=== PATIENT | male | born 1980 | race Caucasian/White ===

== ENCOUNTER 2017-06-14 08:40 | Emergency (ER) | payer BC, OTHER ==
[2017-06-14] MEDS ORDERED: ONDANSETRON HCL INJ/PF 4 MG/2 ML SDV IV ONE (09:01)
[2017-06-14] MEDS ORDERED: PANTOPRAZOLE SODIUM 40 MG VIAL IV ONE (09:01)
[2017-06-14 09:29] LABS: ABSOLUTE BASOPHILS # (AUTO) 0.1 10^3/uL (0.0-0.2); ABSOLUTE EOSINOPHILS # (AUTO) 0.1 10^3/uL (0.0-0.6); ABSOLUTE LYMPHOCYTES (AUTO) 1.8 10^3/uL (0.5-4.7); ABSOLUTE MONOCYTES (AUTO) 0.8 10^3/uL (0.1-1.4); ABSOLUTE NEUT (AUTO) 10.6 10^3/uL (1.7-8.2); BASOPHILS % (AUTO) 0.5 % (0-2); EOSINOPHILS % (AUTO) 0.4 % (0-6); HEMATOCRIT 50.7 % (37.9-51.0); LYMPHOCYTES % (AUTO) 13.3 % (13-45); MEAN CORPUSCULAR HEMOGLOBIN 31.4 pg (27.0-33.4); MEAN CORPUSCULAR HGB CONC 35.6 g/dL (32.0-36.0); MEAN CORPUSCULAR VOLUME 88 fl (80-97); MONOCYTES % (AUTO) 6.2 % (3-13); PLATELET COUNT 385 10^3/uL (150-450); RED BLOOD COUNT 5.75 10^6/uL (4.35-5.55); RED CELL DISTRIBUTION WIDTH 12.6 % (11.5-14.0); SEGMENTED NEUTROPHILS % (AUTO) 79.6 % (42-78); TOTAL CELLS COUNTED % (AUTO) 100 %; WHITE BLOOD COUNT 13.3 10^3/uL (4.0-10.5)
[2017-06-14 09:49] LABS: ALANINE AMINOTRANSFERASE 67 U/L (21-72); ALBUMIN 5.1 g/dL (3.5-5.0); ALKALINE PHOSPHATASE 91 U/L (38-126); ANION GAP 15 (5-19); ASPARTATE AMINO TRANSFERASE 44 U/L (17-59); BILIRUBIN,DIRECT 0.4 mg/dL (0.0-0.4); BILIRUBIN,TOTAL 1.2 mg/dL (0.2-1.3); BLOOD UREA NITROGEN 10 mg/dL (7-20); CALCIUM 10.4 mg/dL (8.4-10.2); CARBON DIOXIDE 27 mmol/L (22-30); CHLORIDE 99 mmol/L (98-107); GLUCOSE 118 mg/dL (75-110); LIPASE 160.9 U/L (23-300); POTASSIUM 3.8 mmol/L (3.6-5.0); SODIUM 140.5 mmol/L (137-145); TOTAL PROTEIN 7.8 g/dL (6.3-8.2)
[2017-06-14 09:52] LABS: ALCOHOL < 10 mg/dL (NONE DETECTED)
[2017-06-14] MEDS ORDERED: NORMAL SALINE 1000 ML 1,000 ML IV ONE (10:10)
--- NOTE | 2017-06-14 10:47 | ER Document Report ---
ED General - General Chief Complaint: Abdominal Pain Stated Complaint: VOMITING BLOOD, BLOOD IN STOOL Time Seen by Provider: 06/14/17 09:00 TRAVEL OUTSIDE OF THE [place] IN LAST 30 DAYS: No - HPI Patient complains to provider of: Nausea vomiting Notes: Patient presents for nausea vomiting ongoing for approximately 10 days. Patient states he had 2 days of bloody stools that stopped 5 days ago now is vomiting a slight amount of blood. Patient states he does drink alcohol approximately 3-4 drinks daily. Patient denies ever having a colonoscopy or EGD performed. Patient states small streaks whenever he does vomit. Patient denies any fevers chills diarrhea. Patient resting comfortably upon my evaluation. Patient also does admit smoking and slight marijuana use. No recent travel or antibiotics. - Related Data Allergies/Adverse Reactions: No Known Allergies Allergy (Unverified 06/14/17 08:43) Past Medical History - Social History Smoking Status: Current Every Day Smoker Chew tobacco use (# tins/day): No Frequency of alcohol use: None Drug Abuse: None Family History: Reviewed & Not Pertinent Patient has suicidal ideation: No Patient has homicidal ideation: No Renal/ Medical History: Denies: Hx Peritoneal Dialysis Review of Systems - Review of Systems Constitutional: No symptoms reported EENT: No symptoms reported Cardiovascular: No symptoms reported Respiratory: No symptoms reported Gastrointestinal: Nausea, Vomiting Genitourinary: No symptoms reported Male Genitourinary: No symptoms reported Musculoskeletal: No symptoms reported Skin: No symptoms reported Hematologic/Lymphatic: No symptoms reported Neurological/Psychological: No symptoms reported -: Yes All other systems reviewed and negative Physical Exam - Vital signs Vitals: Temp Pulse Resp BP Pulse Ox 97.9 F 97 16 165/109 H 98 06/14/17 08:49 06/14/17 08:49 06/14/17 08:49 06/14/17 08:49 06/14/17 08:49 Interpretation: Normal - General General appearance: Appears well, Alert - HEENT Head: Normocephalic, Atraumatic Eyes: Normal Pupils: PERRL - Respiratory Respiratory status: No respiratory distress Chest status: Nontender Breath sounds: Normal Chest palpation: Normal - Cardiovascular Rhythm: Regular Heart sounds: Normal auscultation Murmur: No - Abdominal Inspection: Normal Distension: No distension Bowel sounds: Normal Tenderness: Nontender Organomegaly: No organomegaly - Back Back: Normal, Nontender - Extremities General upper extremity: Normal inspection, Nontender, Normal color, Normal ROM , Normal temperature General lower extremity: Normal inspection, Nontender, Normal color, Normal ROM , Normal temperature, Normal weight bearing. No: Yahir's sign - Neurological Neuro grossly intact: Yes Cognition: Normal Orientation: AAOx4 Bruno Coma Scale Eye Opening: Spontaneous Bruno Coma Scale Verbal: Oriented Bruno Coma Scale Motor: Obeys Commands Bashir Coma Scale Total: 15 Speech: Normal Motor strength normal: LUE, RUE, LLE, RLE Sensory: Normal - Psychological Associated symptoms: Normal affect, Normal mood - Skin Skin Temperature: Warm Skin Moisture: Dry Skin Color: Normal Course - Re-evaluation Re-evalutation: 06/14/17 15:07 Laboratory studies showed hemoconcentration. Patient had no vomiting here is able tolerate p.o. More likely underlying gastritis. Patient was encouraged to stop drinking alcohol patient agrees with plan with nausea medication and omeprazole. Patient scheduled for his care discharged home. The patient presents with nausea vomiting without signs of peritonitis or other life- threatening or serious etiology. The patient appears stable for discharge and has been instructed to return immediately if the symptoms worsen in any way, or in 8-12hr if not improved for re-evaluation. The patient has been instructed to return if the symptoms worsen or change in any way. - Vital Signs Vital signs: Temp Pulse Resp BP Pulse Ox 97.9 F 92 18 169/113 H 98 06/14/17 08:49 06/14/17 11:34 06/14/17 11:34 06/14/17 11:34 06/14/17 11:34 - Laboratory Result Diagrams: 06/14/17 09:03 06/14/17 09:03 Laboratory results interpreted by me: 06/14/17 06/14/17 09:03 09:03 WBC 13.3 H RBC 5.75 H Hgb 18.0 H Seg Neutrophils % 79.6 H Absolute Neutrophils 10.6 H Glucose 118 H Calcium 10.4 H Albumin 5.1 H Discharge - Discharge Clinical Impression: Nausea & vomiting Condition: Good Disposition: HOME, SELF-CARE Instructions: Gastritis ([facility]), Gastroenteritis (adult) ([facility]), Gastroenterology Additional Instructions: Your laboratory results today show signs of dehydration. More likely have a GI virus that is causing nausea vomiting and some inflammation of the stomach gastritis causing the small amount of blood to be vomited. Please abstain from any alcohol use for the next few days. Take medications as prescribed. Return to ER symptoms worsen. Would recommend following up with her primary care physician and/or goggles assembler Prescriptions: Omeprazole 20 mg PO DAILY #30 capsule. Ondansetron [Zofran Odt] 4 mg PO Q6 PRN #30 tab.rapdis PRN Reason: For Nausea/Vomiting Promethazine HCl [Phenergan 25 mg Tablet] 25 mg PO Q6 #30 tablet Referrals: EMELINA CERVANTES DO [Primary Care Provider] - Follow up as needed
[2017-06-14 11:36] VITALS: BP 169/113
== END 2017-06-14 11:35 | disposition home or self-care (01) ==
LOC: ER 08:40
DX: R11.2 Nausea with vomiting, unspecified (principal); R10.9 Unspecified abdominal pain; K92.1 Melena; F17.200 Nicotine dependence, unspecified, uncomplicated
CPT/HCPCS: 99284; 96361; 96374; 96375; 36415; 80307; 83690; 83735; 85025; 80053; S0164; J2405; J7030

== ENCOUNTER 2017-08-15 11:55 | Emergency (ER) | payer BC ==
[2017-08-15] MEDS ORDERED: ONDANSETRON HCL INJ/PF 4 MG/2 ML SDV IV ONE (12:09)
[2017-08-15] MEDS ORDERED: HYDROCHLOROTHIAZIDE 12.5 MG CAPSULE PO ONE (12:10)
[2017-08-15] MEDS ORDERED: LISINOPRIL 10 MG TABLET PO ONE (12:10)
[2017-08-15] MEDS ORDERED: RINGERS SOLUTION,LACTATED 1,000 ML IV ONE (12:10)
--- NOTE | 2017-08-15 12:13 | ER Document Report ---
ED Medical Screen (RME) - General Chief Complaint: High Blood Pressure Stated Complaint: BLOOD PRESSURE CONCERNS Time Seen by Provider: 08/15/17 12:09 Notes: RAPID MEDICAL EVALUATION DISCLOSURE I have seen this patient as part of a Rapid Medical Evaluation and, if applicable, placed any initially appropriate orders. The patient will be seen and fully evaluated, including a full history and physical exam, by a provider ( in Main ED or Fast Track) when a room becomes available. 36-year-old male PMH EtOH abuse (6 pack beer daily for many years) here with complaints of nausea vomiting and "my stomach is on fire" for the past 2 days. He states he has been unable to keep down any foods liquids or medications. He had the same constellation of symptoms recently and was seen in the emergency department. He was prescribed Zofran ODT which he has been swallowing and "I am puking it right back up". He is not allowing it to dissolve under his tongue. He has not been able to keep down his lisinopril/hydrochlorothiazide combination blood pressure medication. His usual blood pressure is in the 120s systolic. He denies any chest pain shortness of breath headache. He denies any prior history of pancreatitis. EXAM Clear to auscultation bilaterally Regular rate and rhythm No abdominal TTP on my exam No peritoneal signs TRAVEL OUTSIDE OF THE U.S. IN LAST 30 DAYS: No - Related Data Allergies/Adverse Reactions: No Known Allergies Allergy (Verified 08/15/17 12:04) Past Medical History - Social History Chew tobacco use (# tins/day): No Frequency of alcohol use: Heavy Drug Abuse: None - Past Medical History Cardiac Medical History: Reports: Hx Hypertension Renal/ Medical History: Denies: Hx Peritoneal Dialysis Physical Exam - Vital signs Vitals: Temp Pulse Resp BP Pulse Ox 97.6 F 80 20 171/127 H 100 08/15/17 12:01 08/15/17 12:01 08/15/17 12:01 08/15/17 12:01 08/15/17 12:01 Course - Vital Signs Vital signs: Temp Pulse Resp BP Pulse Ox 97.6 F 80 20 171/127 H 100 08/15/17 12:01 08/15/17 12:01 08/15/17 12:01 08/15/17 12:01 08/15/17 12:01
[2017-08-15 13:16] LABS: ABSOLUTE BASOPHILS # (AUTO) 0.1 10^3/uL (0.0-0.2); ABSOLUTE LYMPHOCYTES (AUTO) 1.4 10^3/uL (0.5-4.7); ABSOLUTE MONOCYTES (AUTO) 0.6 10^3/uL (0.1-1.4); ABSOLUTE NEUT (AUTO) 8.5 10^3/uL (1.7-8.2); BASOPHILS % (AUTO) 0.5 % (0-2); EOSINOPHILS % (AUTO) 0.3 % (0-6); HEMOGLOBIN 18.2 g/dL (13.5-17.0); LYMPHOCYTES % (AUTO) 13.1 % (13-45); MEAN CORPUSCULAR HEMOGLOBIN 30.6 pg (27.0-33.4); MEAN CORPUSCULAR VOLUME 88 fl (80-97); MONOCYTES % (AUTO) 5.5 % (3-13); PLATELET COUNT 367 10^3/uL (150-450); RED BLOOD COUNT 5.94 10^6/uL (4.35-5.55); RED CELL DISTRIBUTION WIDTH 12.8 % (11.5-14.0); SEGMENTED NEUTROPHILS % (AUTO) 80.6 % (42-78); TOTAL CELLS COUNTED % (AUTO) 100 %; WHITE BLOOD COUNT 10.5 10^3/uL (4.0-10.5)
[2017-08-15 13:28] LABS: ALANINE AMINOTRANSFERASE 56 U/L (21-72); ALBUMIN 5.3 g/dL (3.5-5.0); ALKALINE PHOSPHATASE 98 U/L (38-126); ANION GAP 16 (5-19); ASPARTATE AMINO TRANSFERASE 39 U/L (17-59); BILIRUBIN,DIRECT 0.3 mg/dL (0.0-0.4); BILIRUBIN,TOTAL 0.9 mg/dL (0.2-1.3); BLOOD UREA NITROGEN 13 mg/dL (7-20); CALCIUM 10.5 mg/dL (8.4-10.2); CARBON DIOXIDE 28 mmol/L (22-30); CHLORIDE 98 mmol/L (98-107); GLUCOSE 140 mg/dL (75-110); LIPASE 214.1 U/L (23-300); SODIUM 141.5 mmol/L (137-145)
[2017-08-15] MEDS ORDERED: LIDOCAINE 2% VISCOUS SOLN 20 ML UDCUP PO ONE (13:35)
[2017-08-15] MEDS ORDERED: MAG HYDROX/AL HYDROX/SIMETH SUSP 30 ML UDCUP PO ONE (13:37)
--- NOTE | 2017-08-15 14:34 | ER Document Report ---
ED General - General Chief Complaint: High Blood Pressure Stated Complaint: BLOOD PRESSURE CONCERNS Time Seen by Provider: 08/15/17 12:09 Notes: Patient is a 36-year-old male presents emergency room with a chief complaint of epigastric discomfort and inability to tolerate p.o. Patient states his been going on since yesterday. He admits to GERD with nausea and vomiting. Patient states that he has had this similarly in the past and came here and was treated and discharged home. Patient follows with [facility] [employer] [facility] Patient states that he takes lisinopril with HCTZ for blood pressure. He admits that he was previously drinking a sixpack a day of beer but is recently started to cut down. TRAVEL OUTSIDE OF THE [place] IN LAST 30 DAYS: No - Related Data Allergies/Adverse Reactions: No Known Allergies Allergy (Verified 08/15/17 12:04) Past Medical History - Social History Smoking Status: Current Every Day Smoker Chew tobacco use (# tins/day): No Frequency of alcohol use: Heavy Drug Abuse: None Family History: Reviewed & Not Pertinent Patient has suicidal ideation: No Patient has homicidal ideation: No - Past Medical History Cardiac Medical History: Reports: Hx Hypertension Renal/ Medical History: Denies: Hx Peritoneal Dialysis Review of Systems - Review of Systems Constitutional: No symptoms reported Cardiovascular: No symptoms reported Respiratory: No symptoms reported Gastrointestinal: See HPI Genitourinary: No symptoms reported Musculoskeletal: No symptoms reported -: Yes All other systems reviewed and negative Physical Exam - Vital signs Vitals: Temp Pulse Resp BP Pulse Ox 97.6 F 80 20 171/127 H 100 08/15/17 12:01 08/15/17 12:01 08/15/17 12:01 08/15/17 12:01 08/15/17 12:01 - Notes Notes: PHYSICAL EXAM GENERAL: Alert, interacts well. HEAD: Normocephalic, atraumatic. EYES: Pupils equal, round, and reactive to light. Extraocular movements intact. ENT: Oral mucosa moist, tongue midline. NECK: Full range of motion. Supple. Trachea midline. LUNGS: Clear to auscultation bilaterally, no wheezes, rales, or rhonchi. No respiratory distress. HEART: Regular rate and rhythm. No murmurs, gallops, or rubs. ABDOMEN: Soft, nondistended, nontender. No guarding, rebound, or rigidity.. Bowel sounds present in all 4 quadrants. EXTREMITIES: Moves all 4 extremities spontaneously. No edema, radial and dorsalis pedis pulses 2/4 bilaterally. No cyanosis. NEUROLOGICAL: Alert and oriented x4. Normal speech. PSYCH: Normal affect, normal mood. SKIN: Warm, dry, normal turgor. No rashes or lesions noted. Course - Re-evaluation Re-evalutation: 08/15/17 15:15 Patient is a 36-year-old male is hemodynamic stable, no acute distress afebrile. Patient's it is complete resolution of his pain after GI cocktail that he received up in triage. Patient denies any nausea or vomiting at this time. Exam does not reveal any concerns for acute abdominal pathology. Patient without benign physical exam. No concerns for pancreatitis, cholecystitis, peritonitis, appendicitis, mesenteric ischemia or obstruction. Patient to follow-up with primary care. - Vital Signs Vital signs: Temp Pulse Resp BP Pulse Ox 97.6 F 94 18 175/117 H 100 08/15/17 12:01 08/15/17 13:45 08/15/17 13:45 08/15/17 13:45 08/15/17 13:45 - Laboratory Result Diagrams: 08/15/17 12:37 08/15/17 12:37 Laboratory results interpreted by me: 08/15/17 08/15/17 12:37 12:37 RBC 5.94 H Hgb 18.2 H Hct 52.0 H Seg Neutrophils % 80.6 H Absolute Neutrophils 8.5 H Glucose 140 H Calcium 10.5 H Albumin 5.3 H Discharge - Discharge Clinical Impression: GERD (gastroesophageal reflux disease), Gastritis Condition: Good Disposition: HOME, SELF-CARE Instructions: Clear Liquid Diet ([facility]) Additional Instructions: Your symptoms appear to be most consistent with stomach or upper intestinal irritation. Please begin taking famotidine 40 mg in the morning and 40 mg at night. This medicine can be purchased directly [id number]. You may also take medicine such as Pepto-Bismol or Tums to assist with your pain. Please return to emergency department immediately if you have worsening of your pain, shortness of breath, vomiting, become unable to exert yourself due to pain or difficulty breathing, you pass out, or have any pain that radiates into your arms, jaw, or back. Please also return if you have any additional symptoms that are concerning to you. You can buy Maalox over the counter which will coat your stomach Prescriptions: Omeprazole Magnesium [Prilosec Otc] 20 mg PO DAILY #30 tablet. Ondansetron [Zofran Odt 4 mg Tablet] 1 - 2 tab PO Q4H PRN #15 tab.rapdis PRN Reason: For Nausea/Vomiting Sucralfate [Carafate 1 gm Tablet] 1 gm PO ACHS #120 tablet Forms: Elevated Blood Pressure Referrals: TWYLA DUTTA FNP [Primary Care Provider] - Follow up in 1 week
[2017-08-15] MEDS ORDERED: METOCLOPRAMIDE HCL INJ/PF 10 MG/2 ML SDV IV ONE (15:20)
[2017-08-15 15:57] VITALS: BP 164/119
== END 2017-08-15 16:07 | disposition home or self-care (01) ==
LOC: ER 11:55
DX: K21.9 Gastro-esophageal reflux disease without esophagitis (principal); K29.70 Gastritis, unspecified, without bleeding; I10 Essential (primary) hypertension; Z79.899 Other long term (current) drug therapy; R11.2 Nausea with vomiting, unspecified; F17.200 Nicotine dependence, unspecified, uncomplicated
CPT/HCPCS: 99283; 96361; 96374; 96375; 36415; 83690; 85025; 80053; J3490; J2765; J2405; J7120

== ENCOUNTER 2017-09-14 10:43 | Emergency (ER) | payer BC ==
[2017-09-14] MEDS ORDERED: METOCLOPRAMIDE HCL INJ/PF 10 MG/2 ML SDV IV ONE (11:58)
--- NOTE | 2017-09-14 11:58 | ER Document Report ---
ED General - General Chief Complaint: Nausea/Vomiting Stated Complaint: BLOOD PRESSURE ISSUE, DIZZY, NAUSEA Time Seen by Provider: 09/14/17 11:50 Mode of Arrival: Ambulatory Information source: Patient Notes: 36-year-old male history of hypertension who is currently on lisinopril presents with complaints of possible high blood pressure. Patient notes he was diagnosed with gastric reflux notes the symptoms worsened over the past few weeks, associated with nausea vomiting fevers and chills. Patient also notes that his arm has been numb with intermittent movement and positioning Patient does note some mild chest pain, does admit to his uncle having an [place] and dying at 34 TRAVEL OUTSIDE OF THE [place] IN LAST 30 DAYS: No - HPI Onset: Other - For the past 4 or 5 months Onset/Duration: Intermittent Quality of pain: Pressure Severity: Mild Pain Level: 1 Associated symptoms: Nausea, Vomiting Exacerbated by: Denies Relieved by: Denies Similar symptoms previously: Yes Recently seen / treated by doctor: Yes - Related Data Allergies/Adverse Reactions: No Known Allergies Allergy (Verified 08/15/17 12:04) Past Medical History - Social History Smoking Status: Current Every Day Smoker Cigarette use (# per day): Yes Chew tobacco use (# tins/day): No Smoking Education Provided: Yes - Patient counselled regarding cessation for 4 minutes Frequency of alcohol use: Rare Drug Abuse: Marijuana Family History: Reviewed & Not Pertinent Patient has suicidal ideation: No Patient has homicidal ideation: No - Past Medical History Cardiac Medical History: Reports: Hx Hypertension Renal/ Medical History: Denies: Hx Peritoneal Dialysis Review of Systems - Review of Systems Notes: REVIEW OF SYSTEMS: CONSTITUTIONAL : Denies fever, chills, or sweats. Denies recent illness. EENT: Denies eye, ear, throat, or mouth pain or symptoms. Denies nasal or sinus congestion or discharge. Denies throat, tongue, or mouth swelling or difficulty swallowing. CARDIOVASCULAR: Admits to intermittent chest pain RESPIRATORY: Denies cough, cold, or chest congestion. Denies shortness of breath, difficulty breathing, or wheezing. GASTROINTESTINAL: Admits to nausea GENITOURINARY: Denies difficulty urinating, painful urination, burning, frequency, blood in urine, or discharge. MUSCULOSKELETAL: Denies back or neck pain or stiffness. Denies joint pain or swelling. SKIN: Denies rash, lesions or sores. HEMATOLOGIC : Denies easy bruising or bleeding. LYMPHATIC: Denies swollen, enlarged glands. NEUROLOGICAL: Denies confusion or altered mental status. Denies passing out or loss of consciousness. Denies dizziness or lightheadedness. Denies headache. Denies weakness or paralysis or loss of use of either side. Denies problems with gait or speech. Denies sensory loss, numbness, or tingling. Denies seizures. PSYCHIATRIC: Denies anxiety or stress. Denies depression, suicidal ideation, or homicidal ideation. ALL OTHER SYSTEMS REVIEWED AND NEGATIVE. Dictation was performed using [employer] voice recognition software PHYSICAL EXAMINATION: GENERAL: Well-appearing, well-nourished and in no acute distress. HEAD: Atraumatic, normocephalic. EYES: Pupils equal round and reactive to light, extraocular movements intact, sclera anicteric, conjunctiva are normal. ENT: Nares patent, oropharynx clear without exudates. Moist mucous membranes. NECK: Normal range of motion, supple without lymphadenopathy LUNGS: Breath sounds clear to auscultation bilaterally and equal. No wheezes rales or rhonchi. HEART: Regular rate and rhythm without murmurs ABDOMEN: Soft, tender in the epigastric region left upper quadrant right upper quadrant Musculoskeletal: Normal range of motion, no pitting or edema. No cyanosis. NEUROLOGICAL: Cranial nerves grossly intact. Normal speech, normal gait. Normal sensory, motor exams PSYCH: Normal mood, normal affect. SKIN: Warm, Dry, normal turgor, no rashes or lesions noted. Physical Exam - Vital signs Vitals: Temp Pulse Resp BP Pulse Ox 97.9 F 70 20 146/103 H 99 09/14/17 10:49 09/14/17 10:49 09/14/17 10:49 09/14/17 10:49 09/14/17 10:49 Course - Re-evaluation Re-evalutation: 09/14/17 12:00 I do not believe this is cardiac at all, nonetheless workup is pending lab work imaging ordered I believe this is more abdominal GERD related 09/14/17 15:51 Patient has mild white count elevation, I believe this is from vomiting, CT noted no significant abnormality patient will be treated symptomatically otherwise well-appearing no distress does not appear to be cardiac in nature After performing a Medical Screening Examination, I estimate there is LOW risk for ACUTE APPENDICITIS, BOWEL OBSTRUCTION, ACUTE CHOLECYSTITIS, PERFORATED DIVERTICULITIS, INCARCERATED HERNIA, PANCREATITIS, TESTICULAR TORSION or PERFORATED ULCER, thus I consider the discharge disposition reasonable. Also, there is no evidence or peritonitis, sepsis, or toxicity. I have reevaluated this patient multiple times and no significant life threatening changes are noted. The patient and I have discussed the diagnosis and risks, and we agree with discharging home with close follow-up with the understanding that symptoms and presentations can change. We also discussed returning to the Emergency Department immediately if new or worsening symptoms occur. We have discussed the symptoms which are most concerning (e.g., bloody stool, fever, changing or worsening pain, intractable vomiting - standard verbal up date) that necessitate immediate return. - Vital Signs Vital signs: Temp Pulse Resp BP Pulse Ox 97.9 F 70 20 146/103 H 99 09/14/17 10:49 09/14/17 10:49 09/14/17 10:49 09/14/17 10:49 09/14/17 10:49 - Laboratory Result Diagrams: 09/14/17 13:14 09/14/17 13:14 Laboratory results interpreted by me: 09/14/17 09/14/17 13:14 13:14 WBC 16.6 H RBC 5.65 H Hgb 17.2 H Seg Neutrophils % 84.1 H Lymphocytes % 10.8 L Absolute Neutrophils 14.0 H Sodium 134.6 L Chloride 92 L Glucose 116 H Calcium 10.3 H - Diagnostic Test Radiology reviewed: Image reviewed, Reports reviewed - CT abdomen with IV contrast notes no significant murmur Discharge - Discharge Clinical Impression: Epigastric pain Condition: Stable Disposition: HOME, SELF-CARE Instructions: Abdominal Pain ([facility]) Prescriptions: Famotidine [Pepcid 20 mg Tablet] 20 mg PO DAILY #30 tablet Referrals: TWYLA DUTTA FNP [Primary Care Provider] - Follow up as needed TREVIN CAMPOS MD [ACTIVE STAFF] - Follow up tomorrow
--- NOTE | 2017-09-14 13:30 | EKG REPORT ---
SEVERITY:- NORMAL ECG - SINUS RHYTHM : Confirmed by: Rafa Chao MD 14-Sep-2017 13:30:01
[2017-09-14 13:45] LABS: ABSOLUTE LYMPHOCYTES (AUTO) 1.8 10^3/uL (0.5-4.7); ABSOLUTE MONOCYTES (AUTO) 0.8 10^3/uL (0.1-1.4); BASOPHILS % (AUTO) 0.2 % (0-2); EOSINOPHILS % (AUTO) 0.2 % (0-6); HEMOGLOBIN 17.2 g/dL (13.5-17.0); LYMPHOCYTES % (AUTO) 10.8 % (13-45); MEAN CORPUSCULAR HEMOGLOBIN 30.4 pg (27.0-33.4); MEAN CORPUSCULAR HGB CONC 35.8 g/dL (32.0-36.0); MEAN CORPUSCULAR VOLUME 85 fl (80-97); MONOCYTES % (AUTO) 4.7 % (3-13); PLATELET COUNT 381 10^3/uL (150-450); RED BLOOD COUNT 5.65 10^6/uL (4.35-5.55); RED CELL DISTRIBUTION WIDTH 12.7 % (11.5-14.0); SEGMENTED NEUTROPHILS % (AUTO) 84.1 % (42-78); TOTAL CELLS COUNTED % (AUTO) 100 %; WHITE BLOOD COUNT 16.6 10^3/uL (4.0-10.5)
[2017-09-14 14:03] LABS: ALANINE AMINOTRANSFERASE 40 U/L (21-72); ALKALINE PHOSPHATASE 80 U/L (38-126); ANION GAP 16 (5-19); ASPARTATE AMINO TRANSFERASE 26 U/L (17-59); BILIRUBIN,DIRECT 0.3 mg/dL (0.0-0.4); BLOOD UREA NITROGEN 14 mg/dL (7-20); CALCIUM 10.3 mg/dL (8.4-10.2); CARBON DIOXIDE 27 mmol/L (22-30); CHLORIDE 92 mmol/L (98-107); CREATINE KINASE 77 U/L (55-170); GLUCOSE 116 mg/dL (75-110); POTASSIUM 3.9 mmol/L (3.6-5.0); SODIUM 134.6 mmol/L (137-145); TOTAL PROTEIN 7.4 g/dL (6.3-8.2)
[2017-09-14 14:14] LABS: TROPONIN I < 0.012 ng/mL
--- NOTE | 2017-09-14 15:39 | RADIOLOGY REPORT (SQ) ---
EXAM DESCRIPTION: CT ABD/PELVIS WITH IV ONLY COMPLETED DATE/TIME: 09/14/2017 3:18 pm REASON FOR STUDY: abd pain COMPARISON: None. TECHNIQUE: CT scan of the abdomen and pelvis performed using helical scanning technique with dynamic intravenous contrast injection. No oral contrast. Images reviewed with lung, soft tissue, and bone windows. Reconstructed coronal and sagittal MPR images reviewed. Delayed images for evaluation of the urinary system also acquired. All images stored on PACS. All CT scanners at this facility use dose modulation, iterative reconstruction, and/or weight based d osing when appropriate to reduce radiation dose to as low as reasonably achievable (ALARA). [facility]: Dose Right [facility]: CareDose [facility]: Dose Right [facility]: Teradose 4D [facility]: Ganji CONTRAST TYPE AND DOSE: contrast/concentration: Isovue 370.00 mg/ml; Total Contrast Delivered: 70.0 ml; Total Saline Delivered: 59.0 ml RENAL FUNCTION: Creatinine- 0.76 BUN=13 RADIATION DOSE: CT Rad equipment meets quality standard of care and radiation dose reduction techniq ues were employed. CTDIvol: 7.5 - 8.6 mGy. DLP: 811 mGy-cm.. LIMITATIONS: None. FINDINGS: LOWER CHEST: No significant findings. No nodules or infiltrates. The hepatic and portal v eins are patent. LIVER: Normal size. No masses. No dilated ducts. SPLEEN: Normal size. No focal lesions. PANCREAS: No masses. No significant calcifications. No adjacent inflammation or peripancreatic fluid collections. Pancreatic duct not dilated. GALLBLADDER: No identified stones by CT criteria. No inflammatory changes to suggest cholecystitis. ADRENAL GLANDS: No significant masses or asymmetry. RIGHT KIDNEY AND URETER: Extrarenal pelvis on the right, normal anatomic variant. No solid masses. No significant calcifications. No hydronephrosis or hydroureter. LEFT KIDNEY AND URETER: No solid masses. No significant calcifications. Extrarenal pelvis on the l eft, normal anatomic variant. No hydronephrosis or hydroureter. AORTA AND VESSELS: No aneurysm. No dissection. Renal arteries, SMA, celiac without stenosis. RETROPERITONEUM: No retroperitoneal adenopathy, hemorrhage or masses. BOWEL AND PERITONEAL CAVITY: No masses or inflammatory changes. No free fluid or peritoneal masses. APPENDIX: Normal. PELVIS: Prostate gland measures 4.0 cm in diameter. No mass. No free fluid. Normal bladder. ABDOMINAL WALL: No masses. No hernias. BONES: No significant or acute findings. OTHER: No other significant finding. IMPRESSION: NO SIGNIFICANT OR ACUTE FINDING IN THE ABDOMEN OR PELVIS ON CT SCAN WITH IV CONTRAST. TECHNICAL DOCUMENTATION: JOB ID: [id number] Quality ID # [id number]: Final reports with documentation of one or more dose reduction techniques (e.g., Au tomated exposure control, adjustment of the mA and/or kV according to patient size, use of iterative reconstruction technique) 2010 [employer]- All Rights Reserved Reading location - IP/workstation name: [email or web address]
[2017-09-14 15:58] VITALS: BP 117/81
== END 2017-09-14 16:09 | disposition home or self-care (01) ==
LOC: ER 10:43
DX: R10.13 Epigastric pain (principal); R11.2 Nausea with vomiting, unspecified; R42 Dizziness and giddiness; R20.0 Anesthesia of skin; R07.9 Chest pain, unspecified; K21.9 Gastro-esophageal reflux disease without esophagitis; I10 Essential (primary) hypertension; Z79.899 Other long term (current) drug therapy; F17.210 Nicotine dependence, cigarettes, uncomplicated
CPT/HCPCS: 93005; 99406; 99284; 96374; 36415; 82553; 82550; 85025; 80053; 84484; 74177; 93010; J2765

== ENCOUNTER 2018-07-14 14:47 | Emergency (ER) | payer BC ==
[2018-07-14 14:59] VITALS: BP 158/96
[2018-07-14] MEDS ORDERED: PROMETHAZINE HCL 25 MG TABLET PO ONE (16:04)
--- NOTE | 2018-07-14 16:07 | ER Document Report ---
ED Medical Screen (RME) - General Chief Complaint: Vomiting Stated Complaint: VOMITING, LEFT SIDE PAIN Time Seen by Provider: 07/14/18 15:57 Primary Care Provider: MANUEL ROACH PA [Primary Care Provider] - Follow up as needed Mode of Arrival: Ambulatory Information source: Patient Notes: Patient presents emergency department with complaints of vomiting for the past 5 days. Reports he is passed out coming out of the shower a few times. Also reports he is vomiting up blood now. Reports history of this for a while. He has been evaluated by GI in [place]. He has been told to quit drinking EtOH and quit smoking marijuana. He reports he has quit smoking marijuana and does not drink as much. Reports decreased urination. Last bowel movement was Thursday and was normal. I have greeted and performed a rapid initial assessment of this patient. A comprehensive ED assessment and evaluation of the patient, analysis of test results and completion of the medical decision making process will be conducted by additional ED providers. Dictation of this chart was performed using voice recognition software; therefore, there may be some unintended grammatical errors. TRAVEL OUTSIDE OF THE [place] IN LAST 30 DAYS: No - Related Data Allergies/Adverse Reactions: hydromorphone [From Dilaudid] Allergy (Verified 07/14/18 15:49) Past Medical History - Social History Chew tobacco use (# tins/day): No Frequency of alcohol use: every other day - Past Medical History Cardiac Medical History: Reports: Hx Hypertension Renal/ Medical History: Denies: Hx Peritoneal Dialysis Physical Exam - Vital signs Vitals: Temp Pulse Resp BP Pulse Ox 98.1 F 72 18 158/96 H 98 07/14/18 14:58 07/14/18 14:58 07/14/18 14:58 07/14/18 14:58 07/14/18 14:58 Course - Vital Signs Vital signs: Temp Pulse Resp BP Pulse Ox 98.1 F 72 18 158/96 H 98 07/14/18 14:58 07/14/18 14:58 07/14/18 14:58 07/14/18 14:58 07/14/18 14:58 Doctor's Discharge - Discharge Referrals: MANUEL ROACH PA [Primary Care Provider] - Follow up as needed
== END 2018-07-14 16:56 | disposition left against medical advice (07) ==
LOC: ER 14:47
DX: K92.0 Hematemesis (principal); R55 Syncope and collapse; R39.89 Other symptoms and signs involving the genitourinary system; I10 Essential (primary) hypertension; Z88.5 Allergy status to narcotic agent; Z53.20 Procedure and treatment not carried out because of patient's decision for unspecified reasons
CPT/HCPCS: 99281